=== PATIENT | male | born 1985 | race Caucasian/White ===

== ENCOUNTER → 2016-05-30 | Outpatient (CLI) | payer BC ==
--- NOTE | 2016-05-30 09:12 | CT ---
EXAMINATION TYPE: CT angio chest DATE OF EXAM: 05/30/2016 8:34 AM COMPARISON: CTA chest February 27, 2016 HISTORY: Chronic pulmonary embolism CT DLP: 248.00 mGycm. Automated Exposure Control for Dose Reduction was Utilized. CONTRAST: CTA scan of the thorax is performed with IV Contrast, patient injected with 100 ml mL of Omnipaque 30 0, pulmonary embolism protocol. MIP Images are created on CT scanner and reviewed. FINDINGS: LUNGS: Exam is slightly suboptimal as is degraded by patient respiratory motion artifact. Dependent l inear atelectasis is seen in the right lung base with more focal area of atelectasis and/or consolida tion noted posteriorly near diaphragm axial image 123. Overall finding is improved from prior study. No pleural effusion or pneumothorax is seen bilaterally. No suspicious parenchymal nodule or mass is present. MEDIASTINUM: There is suboptimal bolus on current study there is no convincing evidence for pulmonar y embolism. Area of thrombosis medial segmental branch of right lower lobe pulmonary artery with subs egmental extension on prior study image 107 shows improved contrast flow on current study. There are no greater than 1 cm hilar or mediastinal lymph nodes. No significant pericardial effusion is seen . Mild cardiomegaly is redemonstrated. Main pulmonary artery measures 3.0 cm in diameter on image 58 felt stable from prior. Adjacent ascending aorta measures 3.[address] findings raising con cern for underlying pulmonary artery hypertension. OTHER: Small degree of bilateral gynecomastia is redemonstrated. Cystic lesion of the anterior right kidney likely reflect simple cyst but is only partially imaged. IMPRESSION: Suboptimal bolus but no convincing evidence for pulmonary embolism currently. Interval re solution of right lower lobe embolism noted. Improving right basilar atelectasis is present. No new i nfiltrate identified.
== END | disposition home or self-care (01) ==
LOC: RADCTMAIN 07:54
PROVIDERS: ATTEND Family Medicine
DX: I26.99 Other pulmonary embolism without acute cor pulmonale (principal); J98.11 Atelectasis
CPT/HCPCS: 71275; Q9967

== ENCOUNTER → 2016-06-03 | Outpatient (CLI) | payer BC ==
[2016-06-03 09:24] LABS: CH 30.8; CHCM 32.4; HCT 45.9 % (39.0-53.0); HGB 14.8 gm/dL (13.0-17.5); MCH 30.8 pg (25.0-35.0); MCHC 32.2 g/dL (31.0-37.0); MCV 95.6 fL (80.0-100.0); Mean Platelet Volume 6.4; RDW 12.8 % (11.5-15.5); WBC 5.2 k/uL (3.8-10.6)
[2016-06-03 09:47] LABS: ALT 39 U/L (21-72); AST 22 U/L (17-59); Alkaline Phosphatase 69 U/L (38-126); Anion Gap 11 mmol/L; Blood Urea Nitrogen 21 mg/dL (9-20); Carbon Dioxide 27 mmol/L (22-30); Chloride 108 mmol/L (98-107); Glucose 83 mg/dL (74-99); Non-African American GFR(MDRD) >60 (>60 ml/min/1.73 sqM); Potassium 4.3 mmol/L (3.5-5.1); Sodium 146 mmol/L (137-145); Total Bilirubin 0.8 mg/dL (0.2-1.3); Total Protein 8.2 g/dL (6.3-8.2)
[2016-06-03 10:21] LABS: Prostate Specific Antigen 0.94 ng/mL (0.00-4.00)
[2016-06-03 12:35] LABS: Hemoglobin A1C 5.1 % (4.2-6.1)
== END | disposition home or self-care (01) ==
LOC: LABWHC1 08:51
PROVIDERS: ATTEND Internal Medicine Endocrinology, Diabetes & Metabolism
DX: Q98.0 Klinefelter syndrome karyotype 47, XXY (principal)
CPT/HCPCS: 36415; 80053; 82306; 83036; 84153; 84403; 85027

== ENCOUNTER → 2016-06-11 | Outpatient (CLI) | payer BC | END | disposition home or self-care (01) | LOC: LABWHC1 11:04 | DX: R53.82 Chronic fatigue, unspecified (principal) | CPT/HCPCS: 36415; 82627; 84439; 84443; 84481; 84482 ==

== ENCOUNTER → 2016-07-30 | Outpatient (CLI) | payer BC ==
[2016-07-30 11:29] LABS: CHCM 31.5; HCT 47.8 % (39.0-53.0); HDW 2.16; HGB 15.2 gm/dL (13.0-17.5); MCH 31.5 pg (25.0-35.0); MCHC 31.9 g/dL (31.0-37.0); MCV 98.8 fL (80.0-100.0); Mean Platelet Volume 6.2; RBC 4.84 m/uL (4.30-5.90); RDW 13.1 % (11.5-15.5); WBC 4.9 k/uL (3.8-10.6)
== END ==
LOC: LABWHC1 10:59
PROVIDERS: ATTEND Internal Medicine Endocrinology, Diabetes & Metabolism
DX: E55.9 Vitamin D deficiency, unspecified (principal); Q98.0 Klinefelter syndrome karyotype 47, XXY
CPT/HCPCS: 36415; 82306; 84403; 85027

== ENCOUNTER → 2016-08-06 | Outpatient (CLI) | payer BC ==
[2016-08-06 09:12] LABS: Basophils # (A) 0.1 k/uL (0-0.2); Basophils % (A) 2 %; CHCM 32.5; Eosinophils # (A) 0.5 k/uL (0-0.7); Eosinophils % (A) 9 %; HCT 46.3 % (39.0-53.0); HDW 2.19; Luc % (Auto) 4; Lymphocytes % (A) 39 %; MCH 31.1 pg (25.0-35.0); MCHC 32.4 g/dL (31.0-37.0); MCV 95.7 fL (80.0-100.0); Mean Platelet Volume 6.2; Monocytes # (A) 0.3 k/uL (0-1.0); Monocytes % (A) 6 %; Neutrophils # (A) 2.1 k/uL (1.3-7.7); Neutrophils % (A) 41 %; RBC 4.83 m/uL (4.30-5.90); WBC 5.2 k/uL (3.8-10.6); WBC (Perox) 5.24
[2016-08-06 09:21] LABS: ALT 34 U/L (21-72); AST 24 U/L (17-59); Alkaline Phosphatase 75 U/L (38-126); Anion Gap 11 mmol/L; Blood Urea Nitrogen 19 mg/dL (9-20); Calcium 9.7 mg/dL (8.4-10.2); Carbon Dioxide 26 mmol/L (22-30); Chloride 107 mmol/L (98-107); Cholesterol 147 mg/dL (<200); Glucose 104 mg/dL (74-99); HDL Cholesterol 61 mg/dL (40-60); Non-African American GFR(MDRD) >60 (>60 ml/min/1.73 sqM); Potassium 4.4 mmol/L (3.5-5.1); Sodium 144 mmol/L (137-145); Total Protein 8.1 g/dL (6.3-8.2); Triglycerides 50 mg/dL (<150)
== END ==
LOC: LABWHC1 08:49
PROVIDERS: ATTEND Physician Assistant Medical
DX: F98.8 Other specified behavioral and emotional disorders with onset usually occurring in childhood and adolescence (principal); E29.1 Testicular hypofunction; E55.9 Vitamin D deficiency, unspecified; I45.6 Pre-excitation syndrome; Q98.4 Klinefelter syndrome, unspecified
CPT/HCPCS: 36415; 80053; 80061; 82040; 82306; 84270; 84403; 84443; 85025

== ENCOUNTER → 2017-03-04 | Outpatient (CLI) | payer BC ==
[2017-03-04 09:57] LABS: CH 30.4; CHCM 31.8; HCT 44.7 % (39.0-53.0); HDW 2.11; HGB 14.3 gm/dL (13.0-17.5); MCH 30.8 pg (25.0-35.0); MCHC 32.1 g/dL (31.0-37.0); MCV 95.9 fL (80.0-100.0); Mean Platelet Volume 6.9; RBC 4.65 m/uL (4.30-5.90); RDW 13.6 % (11.5-15.5); WBC 4.5 k/uL (3.8-10.6)
== END | disposition home or self-care (01) ==
LOC: LABWHC1 09:19
PROVIDERS: ATTEND Internal Medicine
DX: Q98.0 Klinefelter syndrome karyotype 47, XXY (principal)
CPT/HCPCS: 36415; 84402; 84403; 85027

== ENCOUNTER → 2017-06-10 | Outpatient (CLI) | payer BC ==
[2017-06-10 11:00] LABS: HCT 46.7 % (39.0-53.0); HGB 14.9 gm/dL (13.0-17.5); MCH 30.5 pg (25.0-35.0); MCV 95.4 fL (80.0-100.0); Mean Platelet Volume 6.5; Platelet Count 314 k/uL (150-450); RDW 12.5 % (11.5-15.5); WBC 4.7 k/uL (3.8-10.6)
[2017-06-10 11:30] LABS: T4, Free (Free Thyroxine) 0.77 ng/dL (0.78-2.19)
== END | disposition home or self-care (01) ==
LOC: LABWHC1 10:39
PROVIDERS: ATTEND Internal Medicine
DX: Q98.0 Klinefelter syndrome karyotype 47, XXY (principal)
CPT/HCPCS: 36415; 84402; 84403; 84439; 84443; 85027

== ENCOUNTER → 2017-09-16 | Outpatient (CLI) | payer BC ==
[2017-09-16 12:45] LABS: T4, Free (Free Thyroxine) 0.81 ng/dL (0.78-2.19)
== END | disposition home or self-care (01) ==
LOC: LABWHC1 11:59
PROVIDERS: ATTEND Internal Medicine
DX: R94.6 Abnormal results of thyroid function studies (principal)
CPT/HCPCS: 36415; 84439; 84443

== ENCOUNTER → 2018-08-18 | Outpatient (CLI) | payer BC ==
[2018-08-18 10:41] LABS: HCT 47.9 % (39.0-53.0); HGB 15.6 gm/dL (13.0-17.5); MCH 30.8 pg (25.0-35.0); MCHC 32.6 g/dL (31.0-37.0); MCV 94.7 fL (80.0-100.0); Mean Platelet Volume 6.3; Platelet Count 326 k/uL (150-450); RBC 5.06 m/uL (4.30-5.90); RDW 13.3 % (11.5-15.5); WBC 4.3 k/uL (3.8-10.6)
[2018-08-18 17:01] LABS: T4, Free (Free Thyroxine) 0.9 ng/dL (0.80-1.80)
== END ==
LOC: LABWHC1 09:59
PROVIDERS: ATTEND Internal Medicine
DX: Q98.0 Klinefelter syndrome karyotype 47, XXY (principal); R94.6 Abnormal results of thyroid function studies
CPT/HCPCS: 36415; 84153; 84402; 84403; 84439; 84443; 85027

== ENCOUNTER → 2018-09-01 | Outpatient (CLI) | payer BC ==
[2018-09-01 09:42] LABS: Basophils # (A) 0.1 k/uL (0-0.2); Basophils % (A) 2 %; Eosinophils # (A) 0.4 k/uL (0-0.7); Eosinophils % (A) 7 %; HCT 47.4 % (39.0-53.0); HGB 15.3 gm/dL (13.0-17.5); Lymphocytes # (A) 1.8 k/uL (1.0-4.8); Lymphocytes % (A) 40 %; MCH 30.4 pg (25.0-35.0); MCHC 32.3 g/dL (31.0-37.0); MCV 94.3 fL (80.0-100.0); Mean Platelet Volume 6.1; Monocytes # (A) 0.3 k/uL (0-1.0); Monocytes % (A) 6 %; Neutrophils % (A) 42 %; Platelet Count 312 k/uL (150-450); RBC 5.03 m/uL (4.30-5.90); RDW 13.2 % (11.5-15.5); WBC 4.6 k/uL (3.8-10.6)
[2018-09-01 17:36] LABS: ALT 36 U/L (10-49); AST 32 U/L (14-35); Albumin/Globulin Ratio 1.69 (1.60-3.17); Alkaline Phosphatase 76 U/L (41-126); Calcium 9.5 mg/dL (8.7-10.3); Carbon Dioxide 26.8 mmol/L (21.6-31.8); Chloride 110 mmol/L (96-109); Cholesterol 155 mg/dL (0-200); Creatine Kinase 146 U/L (35-257); Globulin 2.6 g/dL (1.6-3.3); Glucose 108 mg/dL (70-110); Potassium 4.5 mmol/L (3.5-5.5); Sodium 141 mmol/L (135-145); Total Bilirubin 0.3 mg/dL (0.2-1.2); Triglycerides <50.0 mg/dL (0.0-149.0); VLDL Calculation 9.98 mg/dL (5.00-40.00)
== END | disposition home or self-care (01) ==
LOC: LABWHC1 09:01
PROVIDERS: ATTEND Family Medicine
DX: E55.9 Vitamin D deficiency, unspecified (principal); F41.1 Generalized anxiety disorder; F90.0 Attention-deficit hyperactivity disorder, predominantly inattentive type; F32.9 Major depressive disorder, single episode, unspecified; I45.6 Pre-excitation syndrome; D50.8 Other iron deficiency anemias; Q98.4 Klinefelter syndrome, unspecified
CPT/HCPCS: 36415; 80053; 80061; 82040; 82306; 82550; 84270; 84403; 84443; 85025

== ENCOUNTER → 2019-05-23 | Outpatient (CLI) | payer BC ==
[2019-05-23 15:52] LABS: HCT 46.7 % (39.0-53.0); MCH 30.5 pg (25.0-35.0); MCHC 32.2 g/dL (31.0-37.0); MCV 94.7 fL (80.0-100.0); Mean Platelet Volume 6.5; Platelet Count 319 k/uL (150-450); RBC 4.93 m/uL (4.30-5.90); RDW 13.1 % (11.5-15.5); WBC 5.1 k/uL (3.8-10.6)
[2019-05-24 00:31] LABS: T4, Free (Free Thyroxine) 1.1 ng/dL (0.80-1.80)
== END | disposition home or self-care (01) ==
LOC: LABWHC1 15:29
PROVIDERS: ATTEND Internal Medicine
DX: E55.9 Vitamin D deficiency, unspecified (principal); Q98.0 Klinefelter syndrome karyotype 47, XXY; R94.6 Abnormal results of thyroid function studies
CPT/HCPCS: 36415; 82306; 84153; 84402; 84403; 84439; 84443; 85027

== ENCOUNTER → 2020-06-08 | Outpatient (CLI) | payer BC ==
[2020-06-08 14:45] LABS: Prostate Specific Antigen 1.1 ng/mL (0.0-2.5)
[2020-06-08 15:27] LABS: HCT 47.3 % (39.6-50.0); HGB 15.6 g/dL (13.0-17.0); MCH 31.1 pg (27.0-32.0); MCV 94.4 fL (80.0-97.0); Mean Platelet Volume 9.1 fL (9.5-12.2); Platelet Count 335 X 10*3/uL (140-440); RBC 5.01 X 10*6/uL (4.40-5.60); RDW 12.5 % (11.5-14.5); WBC 6.14 X 10*3/uL (4.50-10.00)
== END | disposition home or self-care (01) ==
LOC: LABWHC1 08:25
PROVIDERS: ATTEND Internal Medicine
DX: E55.9 Vitamin D deficiency, unspecified (principal); Q98.0 Klinefelter syndrome karyotype 47, XXY
CPT/HCPCS: 36415; 82306; 84153; 84402; 84403; 85027

== ENCOUNTER → 2020-08-19 | Outpatient (CLI) | payer BC ==
[2020-08-19 15:26] LABS: Basophils # (A) 0.12 X 10*3/uL (0.00-0.10); Basophils % (A) 2.1 %; Eosinophils # (A) 0.42 X 10*3/uL (0.04-0.35); Eosinophils % (A) 7.3 %; HCT 45.4 % (39.6-50.0); HGB 14.9 g/dL (13.0-17.0); Lymphocytes # (A) 2.12 X 10*3/uL (0.90-5.00); Lymphocytes % (A) 36.8 %; MCH 30.5 pg (27.0-32.0); MCHC 32.8 g/dL (32.0-37.0); MCV 92.8 fL (80.0-97.0); Mean Platelet Volume 8.7 fL (9.5-12.2); Monocytes # (A) 0.53 X 10*3/uL (0.20-1.00); Monocytes % (A) 9.2 %; Neutrophils # (A) 2.56 X 10*3/uL (1.80-7.70); Neutrophils % (A) 44.4 %; Platelet Count 319 X 10*3/uL (140-440); RBC 4.89 X 10*6/uL (4.40-5.60); RDW 12.5 % (11.5-14.5); WBC 5.76 X 10*3/uL (4.50-10.00)
[2020-08-19 21:17] LABS: African American GFR (CKD) 89.6 (60.0-200.0); Albumin 4.3 g/dL (3.80-4.90); Albumin/Globulin Ratio 1.65 (1.60-3.17); Anion Gap 7.4 mmol/L (4.00-12.00); BUN/Creat Ratio 16.67 Ratio (12.00-20.00); Calcium 9.3 mg/dL (8.7-10.3); Carbon Dioxide 24.6 mmol/L (21.6-31.8); Globulin 2.6 g/dL (1.6-3.3); Non-African American GFR(CKD) 77.3 (60.0-200.0); Potassium 4.3 mmol/L (3.5-5.5); Total Bilirubin 0.4 mg/dL (0.2-1.2); Total Protein 6.9 g/dL (6.2-8.2)
== END | disposition home or self-care (01) ==
LOC: LABWHC1 08:18
PROVIDERS: ATTEND Family Medicine
DX: E29.1 Testicular hypofunction (principal); F41.1 Generalized anxiety disorder; E55.9 Vitamin D deficiency, unspecified; F90.0 Attention-deficit hyperactivity disorder, predominantly inattentive type; F32.9 Major depressive disorder, single episode, unspecified; I45.6 Pre-excitation syndrome; D50.8 Other iron deficiency anemias
CPT/HCPCS: 36415; 80053; 82040; 82306; 82550; 84270; 84403; 84443; 85025

== ENCOUNTER → 2021-07-24 | Outpatient (CLI) | payer BC ==
[2021-07-24 16:36] LABS: Basophils # (A) 0.11 X 10*3/uL (0.00-0.10); Eosinophils # (A) 0.37 X 10*3/uL (0.04-0.35); Eosinophils % (A) 6.7 %; HCT 47.2 % (39.6-50.0); HGB 15.3 g/dL (13.0-17.0); Immature Grans, Automated 0 %; Lymphocytes # (A) 2.09 X 10*3/uL (0.90-5.00); Lymphocytes % (A) 37.9 %; MCH 30.3 pg (27.0-32.0); MCHC 32.4 g/dL (32.0-37.0); MCV 93.5 fL (80.0-97.0); Mean Platelet Volume 8.8 fL (9.5-12.2); Monocytes # (A) 0.43 X 10*3/uL (0.20-1.00); Monocytes % (A) 7.8 %; NRBC Per 100 WBC 0 /100 WBCS (0.0-0.0); Neutrophils # (A) 2.51 X 10*3/uL (1.80-7.70); Neutrophils % (A) 45.6 %; Platelet Count 342 X 10*3/uL (140-440); RBC 5.05 X 10*6/uL (4.40-5.60); RDW 12.5 % (11.5-14.5); WBC 5.51 X 10*3/uL (4.50-10.00)
[2021-07-24 17:02] LABS: ALT 38 U/L (10-49); AST 25 U/L (14-35); African American GFR (CKD) 73.9 (60.0-200.0); Albumin 4.3 g/dL (3.8-4.9); Albumin/Globulin Ratio 1.23 (1.60-3.17); Alkaline Phosphatase 85 U/L (41-126); BUN/Creat Ratio 13.14 Ratio (12.00-20.00); Blood Urea Nitrogen 18.4 mg/dL (9.0-27.0); Calcium 9.5 mg/dL (8.7-10.3); Chloride 107 mmol/L (96-109); Chol/HDL Ratio 2.61 Ratio; Globulin 3.5 g/dL (1.6-3.3); Glucose 92 mg/dL (70-110); LDL Cholesterol,Calculated 76.8 mg/dL (0.0-131.0); Non-African American GFR(CKD) 63.7 (60.0-200.0); Potassium 4.4 mmol/L (3.5-5.5); Sodium 140 mmol/L (135-145); Total Protein 7.8 g/dL (6.2-8.2); VLDL Calculation 11.44 mg/dL (5.00-40.00)
== END | disposition home or self-care (01) ==
LOC: LABWHC1 10:15
PROVIDERS: ATTEND Physician Assistant
DX: E29.1 Testicular hypofunction (principal); F41.1 Generalized anxiety disorder; D50.8 Other iron deficiency anemias
CPT/HCPCS: 36415; 80053; 80061; 82040; 82306; 84270; 84403; 84443; 85025

== ENCOUNTER → 2023-05-06 | Outpatient (CLI) | payer BC ==
[2023-05-06 10:28] LABS: HCT 48.6 % (39.0-53.0); HGB 16.2 gm/dL (13.0-17.5); MCH 31.4 pg (25.0-35.0); MCHC 33.3 g/dL (31.0-37.0); MCV 94.3 fL (80.0-100.0); Mean Platelet Volume 6.5; Platelet Count 357 k/uL (150-450); RBC 5.15 m/uL (4.30-5.90); RDW 12.5 % (11.5-15.5); WBC 6.9 k/uL (3.8-10.6)
[2023-05-06 10:37] LABS: African American GFR (CKD) 68 (>60 ml/min/1.73 sqM); Anion Gap 11 mmol/L; Blood Urea Nitrogen 21 mg/dL (9-20); Carbon Dioxide 26 mmol/L (22-30); Chloride 104 mmol/L (98-107); Glucose 102 mg/dL (74-99); Non-African American GFR(CKD) 59 (>60 ml/min/1.73 sqM); Potassium 4.2 mmol/L (3.5-5.1); Sodium 141 mmol/L (137-145)
[2023-05-06 10:51] LABS: INR 0.9 (<1.2); Prothrombin Time 10.3 sec (10.0-12.5)
== END | disposition home or self-care (01) ==
LOC: LABWHC1 10:04
PROVIDERS: ATTEND Internal Medicine
DX: I47.10 Supraventricular tachycardia, unspecified (principal)
CPT/HCPCS: 36415; 80048; 85027; 85610

== ENCOUNTER → 2023-07-29 | Outpatient (CLI) | payer BC ==
[2023-07-29 13:18] LABS: Basophils # (A) 0.12 X 10*3/uL (0.00-0.10); Basophils % (A) 1.8 %; Eosinophils # (A) 0.37 X 10*3/uL (0.04-0.35); Eosinophils % (A) 5.5 %; HCT 45.9 % (39.6-50.0); HGB 15.1 g/dL (13.0-17.0); Lymphocytes # (A) 2.54 X 10*3/uL (0.90-5.00); Lymphocytes % (A) 37.9 %; MCH 30.1 pg (27.0-32.0); MCHC 32.9 g/dL (32.0-37.0); MCV 91.6 FL (80.0-97.0); Mean Platelet Volume 8.6 FL (9.5-12.2); Monocytes # (A) 0.59 X 10*3/uL (0.20-1.00); Monocytes % (A) 8.8 %; NRBC Per 100 WBC 0 X 10*3/uL (0.00-0.01); Neutrophils # (A) 3.06 X 10*3/uL (1.80-7.70); Neutrophils % (A) 45.7 %; Platelet Count 332 X 10*3/uL (140-440); RBC 5.01 X 10*6/uL (4.40-5.60); RDW 12.7 % (11.5-14.5)
[2023-07-29 13:42] LABS: ALT 47 U/L (10-49); AST 21 U/L (14-35); Albumin 4.3 g/dL (3.8-4.9); Albumin/Globulin Ratio 1.23 Ratio (1.60-3.17); Alkaline Phosphatase 100 U/L (41-126); BUN/Creat Ratio 11.69 Ratio (12.00-20.00); Blood Urea Nitrogen 15.2 mg/dL (9.0-27.0); Calcium 9.6 mg/dL (8.7-10.3); Carbon Dioxide 24.2 mmol/L (21.6-31.8); Chloride 108 mmol/L (96-109); Chol/HDL Ratio 3.39 Ratio; Globulin 3.5 g/dL (1.6-3.3); Glucose 102 mg/dL (70-110); LDL Cholesterol,Calculated 106.6 mg/dL (0.0-131.0); Potassium 4.4 mmol/L (3.5-5.5); Prostate Specific Antigen 1.18 ng/mL (0.000-2.500); Sodium 143 mmol/L (135-145); Total Bilirubin 0.5 mg/dL (0.3-1.2); Total Protein 7.8 g/dL (6.2-8.2)
== END | disposition home or self-care (01) ==
LOC: LABWHC1 10:14
PROVIDERS: ATTEND Physician Assistant Medical
DX: Z12.5 Encounter for screening for malignant neoplasm of prostate (principal); F32.9 Major depressive disorder, single episode, unspecified; F90.0 Attention-deficit hyperactivity disorder, predominantly inattentive type; F41.1 Generalized anxiety disorder; E29.1 Testicular hypofunction; E55.9 Vitamin D deficiency, unspecified; D50.8 Other iron deficiency anemias
CPT/HCPCS: 36415; 80053; 80061; 82040; 82306; 84153; 84270; 84403; 84443; 85025

== ENCOUNTER 2024-05-20 22:59 | Emergency (ER) | payer BC ==
--- NOTE | 2024-05-20 23:21 | ED ---
General Adult HPI - General Source: patient, family Mode of arrival: ambulatory Limitations: no limitations <Cesar Clark - Last Filed: 05/20/24 23:21> - General Source: patient, family, RN notes reviewed, old records reviewed Mode of arrival: ambulatory Limitations: no limitations - History of Present Illness Radiation: non-radiation Severity scale (1-10): 0 Consistency: constant Improves with: none Worsens with: none Associated Symptoms: denies other symptoms <Spenser Rob - Last Filed: 05/21/24 00:54> - General Stated complaint: SOB, Chest pain,Tingling in hands Time Seen by Provider: 05/20/24 23:21 - History of Present Illness Initial comments: Quick note: 38-year-old male with history of [id number]-[id number]-Lfnzr presenting with chief complaint of lightheadedness. Patient noted that this evening he felt like his heart was beating quickly and when he went to stand up he was lightheaded. He is also having some pain over the left side of his chest. His propranolol and flecainide and thinks that it may have helped, but is difficult to tell. 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 He has a mild shortness of breath earlier, no current shortness of breath. 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 presenting with lighthe adedness and palpitations although symptoms have resolved here in the emergency department (Spenser Rob) - Related Data Home Medications Medication Instructions Recorded Confirmed Cholecalciferol [Vitamin D3] 2,000 unit PO DAILY 02/27/16 02/27/16 Dextroamphetamine/Amphetamine 20 mg PO DAILY 02/27/16 02/27/16 [Adderall] Lisdexamfetamine Dimesylate 50 mg PO QAM 02/27/16 02/27/16 [Vyvanse] Testosterone [Androgel 1% Gel 1 packet TOPICAL DAILY 02/27/16 02/27/16 Packet] Previous Rx's Medication Instructions Recorded Rivaroxaban [Xarelto] 15 mg PO BID #60 tab 02/27/16 traMADol HCl [Ultram] 50 mg PO Q4H PRN #20 tab 02/27/16 Azithromycin [Zithromax Z-pack (6 250 mg PO DIRECTED #6 tab 02/28/16 tabs)] HYDROcodone/APAP 7.5-325MG [[place] 1 tab PO Q6HR PRN #30 tab 02/28/16 7.5-325] Allergies Allergy/AdvReac Type Severity Reaction Status Date / Time No Known Allergies Allergy Verified 05/20/24 23:39 Review of Systems ROS Other: All systems not noted in ROS Statement are negative. <Cesar Clark - Last Filed: 05/20/24 23:21> ROS Other: All systems not noted in ROS Statement are negative. <Spenser Rob - Last Filed: 05/21/24 00:54> ROS Statement: Those systems with pertinent positive or pertinent negative responses have been documented in the HPI. Past Medical History Past Medical History: Asthma Additional Past Medical History / Comment(s): Elliott parkinson White, lyme disease, right lung blood clot 02/27/16 History of Any Multi-Drug Resistant Organisms: None Reported Past Surgical History: Orthopedic Surgery Additional Past Surgical History / Comment(s): cardiac ablation; 3 surgeries right knee and left foot surgery Past Anesthesia/Blood Transfusion Reactions: Previous Problems w/ Anesthesia Additional Past Anesthesia/Blood Transfusion Reaction / Comment(s): took awhile to wake up after foot surgery Past Psychological History: No Psychological Hx Reported Past Alcohol Use History: None Reported Past Drug Use History: None Reported - Past Family History Father History Unknown: Yes Mother Additional Family Medical History / Comment(s): mono at somepoint; does not know any other history <Cesar Clark - Last Filed: 05/20/24 23:21> General Exam <Cesar Clark - Last Filed: 05/20/24 23:21> General appearance: alert, in no apparent distress, anxious Head exam: Present: atraumatic, normocephalic, normal inspection Eye exam: Present: normal appearance, PERRL, EOMI. Absent: scleral icterus, conjunctival injection, periorbital swelling ENT exam: Present: normal exam, mucous membranes moist Neck exam: Present: normal inspection. Absent: tenderness, meningismus, lymphadenopathy Respiratory exam: Present: normal lung sounds bilaterally. Absent: respiratory distress, wheezes, rales, rhonchi, stridor Cardiovascular Exam: Present: regular rate, normal rhythm, normal heart sounds. Absent: systolic murmur, diastolic murmur, rubs, gallop, clicks GI/Abdominal exam: Present: soft, normal bowel sounds. Absent: distended, tenderness, guarding, rebound, rigid Extremities exam: Present: normal inspection, full ROM, normal capillary refill. Absent: tenderness, pedal edema, joint swelling, calf tenderness Back exam: Present: normal inspection Neurological exam: Present: alert, oriented X3, CN II-XII intact Psychiatric exam: Present: normal affect, normal mood Skin exam: Present: warm, dry, intact, normal color. Absent: rash <Spenser Rob - Last Filed: 05/21/24 00:54> - General Exam Comments Initial Comments: Visual Physical Exam General: Well-appearing, nontoxic, no acute distress. Head: Normocephalic, atraumatic Eyes: PERRLA, EOMI ENT: Airway patent Chest: Nonlabored breathing Skin: No visual rash, normal skin tone Neuro: Alert and oriented 3 Musculoskeletal: No gross abnormalities (Cesar Clark) Course <Spenser Rob - Last Filed: 05/21/24 00:54> Vital Signs 05/20/24 23:33 Temperature 98.0 F Pulse Rate 86 Respiratory 18 Rate Blood Pressure 155/98 O2 Sat by Pulse 98 Oximetry - Reevaluation(s) Reevaluation #1: 05/21/24 00:53 Medical records reviewed (Spenser Rob) Reevaluation #2: 05/21/24 00:53 Patient symptoms unchanged (Spenser Rob) Reevaluation #3: 05/21/24 00:53 Patient informed of results and questions answered (Spenser Rob) Reevaluation #4: Was pt. sent in by a medical professional or institution (, PA, BOARD MIXER TENDER, urgent c are, hospital, or half-way...) When possible be specific @ -no Did you speak to anyone other than the patient for history (EMS, parent, family, police, friend...)? What history was obtained from this source @ -no Did you review nursing and triage notes (agree or disagree)? Why? @ -agree Are old charts reviewed (outside hosp., previous admission, EMS record, old EKG, old radiological studies, urgent care reports/EKG's, half-way records)? Report findings @ -yes Differential Diagnosis (chest pain, altered mental status, abdominal pain women, abdominal pain men, vaginal bleeding, weakness, fever, dyspnea, syncope, headache, dizziness, GI bleed, back pain, seizure, CVA, palpatations, mental health, musculoskeletal)? @ -prior EKG interpreted by me (3pts min.). @ -yes X-rays interpreted by me (1pt min.). @ -yes negative for acute disease CT interpreted by me (1pt min.). @ -no U/S interpreted by me (1pt. min.). @ -no What testing was considered but not performed or refused? (CT, X-rays, U/S, labs)? Why? @ -none What meds were considered but not given or refused? Why? @ -none Did you discuss the management of the patient with other professionals (professionals i.e. , PA, BOARD MIXER TENDER, lab, RT, psych nurse, social work instructor, service specialist, teacher, quarantine officer, piano case maker)? Give summary @ -no Was smoking cessation discussed for >3mins.? @ -no Was critical care preformed (if so, how long)? @ -no Were there social determinants of health that impacted care today? How? (Home lessness, low income, unemployed, alcoholism, drug addiction, transportation, low edu. Level, literacy, decrease access to med. care, [facility], rehab)? @ -none Was there de-escalation of care discussed even if they declined (Discuss DNR or withdrawal of care, Hospice)? DNR status @ -no What co-morbidities impacted this encounter? (DM, HTN, Smoking, COPD, CAD, Cancer, CVA, ARF, Chemo, Hep., AIDS, mental health diagnosis, sleep apnea, morbid obesity)? @ -none Was patient admitted / discharged? Hospital course, mention meds given and route, prescriptions, significant lab abnormalities, going to OR and other pertinent info. @ - Undiagnosed new problem with uncertain prognosis? @ -no Drug Therapy requiring intensive monitoring for toxicity (Heparin, Nitro, Insulin, Cardizem)? @ -no Were any procedures done? @ -no Diagnosis/symptom? @ - Acute, or Chronic, or Acute on Chronic? @ -Acute Uncomplicated (without systemic symptoms) or Complicated (systemic symptoms)? @ -Complicated Side effects of treatment? @ -no Exacerbation, Progression, or Severe Exacerbation? @ -exacerbation Poses a threat to life or bodily function? How? (Chest pain, [place], [place], pneumonia, PE, COPD, DKA, ARF, appy, cholecystitis, CVA, Diverticulitis, Homicidal, Suicidal, threat to staff... and all critical care pts) @ -yes (Spenser Rob) Reevaluation #5: Differential Palpitations Ventricular arrhythmias, atrial arrhythmias, myocardial infarction, anemia, thyrotoxicosis, electrolyte imbalance, hypokalemia, pulmonary embolism, pulmonary disease, drugs, alcohol, anxiety, stress.... This is not meant to be an all-inclusive list. (Spenser Rob) EKG Findings - EKG Comments: EKG Findings:: EKG is sinus 77 OH 86 QRS 206 QRS QTc 484 <Spenser Rob - Last Filed: 05/21/24 00:54> Medical Decision Making <Cesar Clark - Last Filed: 05/20/24 23:21> - Lab Data Result diagrams: 05/20/24 23:46 05/20/24 23:46 <Spenser Rob - Last Filed: 05/21/24 00:54> - Medical Decision Making I performed the quick note portion of this visit, electronically signed Cesar Clark PA-C (Cesar Clark) - Lab Data Lab Results 05/20/24 05/20/24 05/20/24 Range/Units 23:46 23:46 23:46 WBC 8.0 (3.8-10.6) k/uL RBC 5.29 (4.30-5.90) m/uL Hgb 16.8 (13.0-17.5) gm/dL Hct 49.9 (39.0-53.0) % MCV 94.2 (80.0-100.0) fL MCH 31.8 (25.0-35.0) pg MCHC 33.8 (31.0-37.0) g/dL RDW 13.0 (11.5-15.5) % Plt Count 332 (150-450) k/uL MPV 7.0 Neutrophils % 56 % Lymphocytes % 28 % Monocytes % 6 % Eosinophils % 6 % Basophils % 1 % Neutrophils # 4.5 (1.3-7.7) k/uL Lymphocytes # 2.3 (1.0-4.8) k/uL Monocytes # 0.5 (0-1.0) k/uL Eosinophils # 0.4 (0-0.7) k/uL Basophils # 0.1 (0-0.2) k/uL PT 10.3 (10.0-12.5) sec INR 0.9 (<1.2) APTT 25.4 (22.0-30.0) sec Sodium 136 L (137-145) mmol/L Potassium 4.8 (3.5-5.1) mmol/L Chloride 103 (98-107) mmol/L Carbon Dioxide 22 (22-30) mmol/L Anion Gap 11 mmol/L BUN 14 (9-20) mg/dL Creatinine 1.13 (0.66-1.25) mg/dL Est GFR (CKD-EPI)AfAm >90 (>60 ml/min/1.73 sqM) Est GFR (CKD-EPI)NonAf 81 (>60 ml/min/1.73 sqM) Glucose 144 H (74-99) mg/dL Calcium 9.7 (8.4-10.2) mg/dL Magnesium 2.1 (1.6-2.3) mg/dL Total Bilirubin 0.9 (0.2-1.3) mg/dL AST 32 (17-59) U/L ALT 34 (4-49) U/L Alkaline Phosphatase 65 (38-126) U/L Troponin I (0.000-0.034) ng/mL Total Protein 8.1 (6.3-8.2) g/dL Albumin 4.4 (3.5-5.0) g/dL 05/20/24 Range/Units 23:46 WBC (3.8-10.6) k/uL RBC (4.30-5.90) m/uL Hgb (13.0-17.5) gm/dL Hct (39.0-53.0) % MCV (80.0-100.0) fL MCH (25.0-35.0) pg MCHC (31.0-37.0) g/dL RDW (11.5-15.5) % Plt Count (150-450) k/uL MPV Neutrophils % % Lymphocytes % % Monocytes % % Eosinophils % % Basophils % % Neutrophils # (1.3-7.7) k/uL Lymphocytes # (1.0-4.8) k/uL Monocytes # (0-1.0) k/uL Eosinophils # (0-0.7) k/uL Basophils # (0-0.2) k/uL PT (10.0-12.5) sec INR (<1.2) APTT (22.0-30.0) sec Sodium (137-145) mmol/L Potassium (3.5-5.1) mmol/L Chloride (98-107) mmol/L Carbon Dioxide (22-30) mmol/L Anion Gap mmol/L BUN (9-20) mg/dL Creatinine (0.66-1.25) mg/dL Est GFR (CKD-EPI)AfAm (>60 ml/min/1.73 sqM) Est GFR (CKD-EPI)NonAf (>60 ml/min/1.73 sqM) Glucose (74-99) mg/dL Calcium (8.4-10.2) mg/dL Magnesium (1.6-2.3) mg/dL Total Bilirubin (0.2-1.3) mg/dL AST (17-59) U/L ALT (4-49) U/L Alkaline Phosphatase (38-126) U/L Troponin I <0.012 (0.000-0.034) ng/mL Total Protein (6.3-8.2) g/dL Albumin (3.5-5.0) g/dL Disposition <eCsar Clark - Last Filed: 05/20/24 23:21> Is patient prescribed a controlled substance at d/c from ED?: No Time of Disposition: 01:00 <Spenser Rob - Last Filed: 05/21/24 00:54> Clinical Impression: Palpitations, WPW (Xznsp-Iazomtvmn-Oalam syndrome), Dizziness Disposition: HOME SELF-CARE Condition: Good Instructions (If sedation given, give patient instructions): Corine-Parkinson- White Syndrome (ED), Heart Palpitations (ED) Referrals: Curtis Temple DO [Primary Care Provider] - 1-2 days
[2024-05-21 00:22] LABS: INR 0.9 (<1.2); Partial Thromboplastin Time 25.4 sec (22.0-30.0); Prothrombin Time 10.3 sec (10.0-12.5)
[2024-05-21 00:28] LABS: ALT 34 U/L (4-49); African American GFR (CKD) >90 (>60 ml/min/1.73 sqM); Anion Gap 11 mmol/L; Blood Urea Nitrogen 14 mg/dL (9-20); Calcium 9.7 mg/dL (8.4-10.2); Carbon Dioxide 22 mmol/L (22-30); Chloride 103 mmol/L (98-107); Glucose 144 mg/dL (74-99); Non-African American GFR(CKD) 81 (>60 ml/min/1.73 sqM); Sodium 136 mmol/L (137-145); Total Bilirubin 0.9 mg/dL (0.2-1.3)
[2024-05-21 00:30] LABS: AST 32 U/L (17-59); Albumin 4.4 g/dL (3.5-5.0); Alkaline Phosphatase 65 U/L (38-126); Magnesium 2.1 mg/dL (1.6-2.3); Potassium 4.8 mmol/L (3.5-5.1); Total Protein 8.1 g/dL (6.3-8.2)
--- NOTE | 2024-05-21 00:32 | XR ---
EXAM: XR Chest, 2 Views CLINICAL HISTORY: ITS.REASON XR Reason: Chest Pain TECHNIQUE: Frontal and lateral views of the chest. COMPARISON: No relevant prior studies available. FINDINGS: Lungs: Unremarkable. No consolidation. Pleural space: Unremarkable. No pneumothorax. Heart: Unremarkable. No cardiomegaly. Mediastinum: Unremarkable. Normal mediastinal contour. Bones/joints: Unremarkable. No acute fracture. IMPRESSION: No consolidation.
[2024-05-21 00:35] LABS: Basophils # (A) 0.1 k/uL (0-0.2); Basophils % (A) 1 %; Eosinophils # (A) 0.4 k/uL (0-0.7); Eosinophils % (A) 6 %; HCT 49.9 % (39.0-53.0); HGB 16.8 gm/dL (13.0-17.5); Lymphocytes # (A) 2.3 k/uL (1.0-4.8); Lymphocytes % (A) 28 %; MCH 31.8 pg (25.0-35.0); MCHC 33.8 g/dL (31.0-37.0); MCV 94.2 fL (80.0-100.0); Monocytes # (A) 0.5 k/uL (0-1.0); Monocytes % (A) 6 %; Neutrophils # (A) 4.5 k/uL (1.3-7.7); Neutrophils % (A) 56 %; Platelet Count 332 k/uL (150-450); RBC 5.29 m/uL (4.30-5.90)
[2024-05-21 01:32] VITALS: BP 158/93; PULSE 77; RESP 20; TEMP 98.4
== END 2024-05-21 01:31 | disposition home or self-care (01) ==
LOC: EC 22:59
DX: I45.6 Pre-excitation syndrome (principal); R42 Dizziness and giddiness
CPT/HCPCS: 36415; 71046; 80053; 83735; 84484; 85025; 85610; 85730; 93005; 99285